=== PATIENT | male | born 1955 | race African-American/Black ===

== ENCOUNTER 2021-02-19 20:35 | Emergency (ER) | payer MEDICARE, SELFPAY ==
[2021-02-19 20:39] VITALS: BP 140/77; PULSE 58; RESP 16; TEMP 36.7; O2SAT 98; BMI 27.8
[2021-02-19 22:09] LABS: Bacteria 0 SEEN /hpf (None Seen); Mucous, Urine 0 SEEN /hpf (<or=2+); Squamous Epithelial Cells - UA 0 SEEN /hpf (0-5)
[2021-02-19 22:13] LABS: Absolute Lymphocyte Count 1.11 X10^3/uL (0.83-4.51); Absolute Neutrophil Count 2.2 X10^3/uL (2.0-7.7); Basophil# 0.02 X10^3/uL; Basophil% 0.5 % (0-1); Eosinophil# 0.17 X10^3/uL; Eosinophils% 4.2 % (0-5); Hematocrit 30.5 % (40-54); Lymphocyte # 1.11 X10^3/ul (0.83-4.51); Lymphocyte % 27.6 % (19-41); Mean Corp Hgb Conc 32.8 g/dL (32-36); Mean Corpuscular Hgb 30.4 pg (27.0-32.0); Mean Corpuscular Volume 92.7 fL (80-94); Mean Platelet Vol. 11.4 fl (6.2-12.0); Monocyte# 0.47 X10^3/uL; Monocyte% 11.7 % (0-10); NRBC Flagged by Analyzer 0 % (0-5); Neutrophil # 2.24 X10^3/uL (2.7-7.7); Neutrophil % 55.8 % (47-70); Platelet Count 170 K/mm3 (150-450); RBC Distribution Width CV 12.1 % (11.6-14.6); RBC Distribution Width SD 40.9 fl (35.1-43.9); Red Blood Count 3.29 M/mm3 (4.6-6.2)
[2021-02-19 22:16] LABS: Color, Urine Yellow (Yellow); Glucose, Dipstick 1000 mg/dl (Normal); Ketone-Dipstick Negative (Negative); Leukocyte Esterase-Dipstick 100 /ul (Negative); Nitrite-Dipstick Negative (Negative); Occult Blood-Urine 150 /ul (Negative); Protein-Dipstick 15 mg/dl (Negative); Specific Gravity, Urine 1.015 (1.002-1.030); Urine Bilirubin Dipstick Negative (Negative); Urine Clarity Clear (Clear); Urine Urobilinogen Normal (Normal)
[2021-02-19 22:27] LABS: International Normalized Ratio 2.2; Prothrombin Time (Protime)PT. 23.8 SECONDS (11.7-14.9)
[2021-02-19 22:29] LABS: AST(SGOT) 19 U/L (15-37); Alanine Aminotransfer ALT/SGPT 31 U/L (16-61); Albumin, Serum 3.2 g/dL (3.2-5.0); Alkaline Phosphatase 72 U/L (45-117); Anion Gap 5 (5-15); BUN 34 mg/dL (7-18); BUN/Creat Ratio 15.8 RATIO (10-20); Bilirubin, Direct 0.11 mg/dL (0.00-0.30); Calcium,Total 8.3 mg/dL (8.5-10.1); Chloride 106 mmol/L (98-107); Creatinine, Serum 2.15 mg/dL (0.70-1.30); EST Glomerular Filtration Rate 33 mL/min (>60); Est Glom Filt Rate - Afr Amer 40 mL/min (>60); Estimated Creatinine Clearance 32.26 ml/min; Globulin 3.2 g/dL (2.2-4.2); Glucose 289 mg/dL (74-106); Potassium 4.2 mmol/L (3.5-5.1); Protein, Total 6.4 g/dL (6.4-8.2); Sodium Level 139 mmol/L (136-145)
[2021-02-19 22:58] LABS: Red Blood Cells-Urine 0-5 SEEN /hpf (0-5); White Blood Cells 0-5 SEEN /hpf (0-5)
--- NOTE | 2021-02-20 00:54 | EDS_ITS ---
HPI History of Present Illness Chief Complaint: GI Bleed Informant: patient Onset/Context/Timing Onset: Weeks Narrative Narrative: Patient is a 65-year-old male with history of multiple DVTs and PEs, on chronic Coumadin therapy, presenting with 2 weeks of intermittent blood in the toilet bowl. He states he has been having hematuria is also been having blood in the front of his underwear. Today he sat down to have a bowel movement and noticed a large metal blood in the stool. He is not sure if it came from his stool or his urine. He denies any clots. He denies any associated pain. Does have a history of hemorrhoids. He denies any dizziness, nausea, vomiting or abdominal pain. Does have a urologist. [facility] Last colonoscopy was about 2 years ago. He states he did have a polyp removed at that time. Prior similar symptoms: No PFSH PFSH Medical History Diabetes Hip replacement planned Hypertension Myocardial infarct Pulmonary embolism Home Medications insulin aspart U-100 [Novolog Flexpen U-100 Insulin] See Protocol SUBCUT TID 02/19/21 [History Last Taken Unknown] insulin glargine [Lantus Solostar U-100 Insulin] 18 unit SUBCUT QHS 02/19/21 [History Last Taken Unknown] tamsulosin [Flomax] 0.4 mg PO DAILY 02/19/21 [History Last Taken Unknown] warfarin [Coumadin] 5 mg PO SUMOTUTHFRSA 02/19/21 [History Last Taken Unknown] warfarin [Coumadin] 7.5 mg PO WE 02/19/21 [History Last Taken Unknown] cephalexin 500 mg PO BID #10 cap 02/20/21 [Rx Last Taken Unknown] Allergy/AdvReac Type Severity Reaction Status Date / Time metformin Allergy Diarrhea Verified 02/19/21 20:38 oxymorphone [From Opana] Allergy NEEDS Verified 02/19/21 20:38 FOLLOW-UP Surgical History H/O shoulder replacement History of coronary artery stent placement Social History Smoking Status: Never smoker ROS ROS ED Constitutional Constitutional ED: Denies chills or fever(s) Eyes Eyes: Denies change in vision ENT ENT ED: Denies rhinorrhea or sore throat Cardiovascular Cardiovascular: Denies chest pain or palpitations Respiratory/Chest Respiratory/Chest: Denies cough or dyspnea Gastrointestinal Gastrointestinal: Reports other Details: Possible bright red blood per rectum ; Denies abdominal pain, nausea or vomiting Genitourinary Genitourinary ED: Reports hematuria; Denies dysuria or urinary frequency Musculoskeletal Musculoskeletal: Denies arthralgias or myalgias Integumentary Denies rash Neurologic Neurologic: Denies headache(s) or weakness EXAM Physical Exam Const Vital Signs: 02/19/21 20:39 Temperature 98.0 F Temperature Source Temporal Pulse Rate 58 L Respiratory Rate 16 Blood Pressure 140/77 H Blood Pressure Mean 98 Pulse Ox 98 Oxygen Delivery Method Room Air Positive well nourished and well developed General Appearance ED: well developed; Negative for pallor HEENT Reports moist mucous membranes Negative for tenderness Eyes PERRL and EOMs intact bilaterally General Eye ED: Negative for pale conjunctiva Neck no lymphadenopathy and supple Chest Wall inspection of chest normal Chest Narrative: Port right anterior chest wall Resp normal respiratory effort and clear to auscultation bilaterally Cardio regular rate, regular rhythm and no murmurs GI normal to inspection, nondistended, normoactive bowel sounds GI Narrative: No hemorrhoids appreciated. Normal rectal exam with brown stool. Rectal Exam: heme negative stool no CVA tenderness Penis: normal penis Meatus: meatus normal Scrotum: testes descended bilaterally Extremity normal to inspection General Extremety ED: Negative for edema or tenderness General Extremity: Negative for edema Neuro oriented x3 and no sensory deficits noted Sensorium / Orientation: alert Motor Exam: strength 5/5 throughout Psych mental status grossly normal Skin no rashes or lesions noted General Skin Exam: Negative for pallor MDM MDM MDM Narrative Medical decision making narrative: Patient evaluated for 2 weeks of worsening hematuria and possible bright red blood per rectum. On exam patient does not have any hemorrhoids or blood on rectal exam. Urinalysis is consistent with hematuria and possible pyuria. Patient is on Coumadin with an INR of 2.2. He has a hemoglobin of 10.0 but he states he does have a history of anemia. His other lab work is remarkable for creatinine of 2.15, but I do not know what his baseline is. Patient thinks he does have a history of CKD. He follows with the [facility]. Given that he is hemodynamically stable and appears to be having hematuria not bright red blood per rectum I think he is stable for outpatient follow-up. He will follow-up with his urologist. He is counseled on signs and symptoms of urinary retention which is a known complication of hematuria. Patient is also counseled that antibiotics can cause an increase in his INR he should follow this closely with his PCP. He verbalizes agreement understanding this plan. Discharged home in stable condition. Lab Data Labs: Laboratory Results - last 24 hr 02/19/21 02/19/21 02/19/21 21:45 22:00 22:00 WBC 4.0 L RBC 3.29 L Hgb 10.0 L Hct 30.5 L MCV 92.7 MCH 30.4 MCHC 32.8 RDW Std Deviation 40.9 RDW Coeff of [place] 12.1 Plt Count 170 MPV 11.4 Immature Gran % (Auto) 0.200 Neut % (Auto) 55.8 Lymph % (Auto) 27.6 [place] % (Auto) 11.7 H Eos % (Auto) 4.2 Baso % (Auto) 0.5 Absolute Neuts (auto) 2.2 Absolute Lymphs (auto) 1.11 Nucleated RBC % 0 PT 23.8 H INR 2.2 Sodium Potassium Chloride Carbon Dioxide Anion Gap BUN Creatinine Estim Creat Clear Calc Est GFR (MDRD) Af Amer Est GFR (MDRD) Non-Af BUN/Creatinine Ratio Glucose Calcium Total Bilirubin Direct Bilirubin AST ALT Alkaline Phosphatase Total Protein Albumin Globulin Urine Color Yellow Urine Clarity Clear Urine pH 6.0 Ur Specific [place] 1.015 Urine Protein 15 H Urine Glucose (UA) 1000 H Urine Ketones Negative Urine Occult Blood 150 H Urine Nitrite Negative Urine Bilirubin Negative Urine Urobilinogen Normal Ur Leukocyte Esterase 100 H Urine RBC 0-5 SEEN Urine WBC 0-5 SEEN Ur Squamous Epith Cells 0 SEEN Urine Bacteria 0 SEEN Urine Mucus 0 SEEN 02/19/21 22:00 WBC RBC Hgb Hct MCV MCH MCHC RDW Std Deviation RDW Coeff of [place] Plt Count MPV Immature Gran % (Auto) Neut % (Auto) Lymph % (Auto) [place] % (Auto) Eos % (Auto) Baso % (Auto) Absolute Neuts (auto) Absolute Lymphs (auto) Nucleated RBC % PT INR Sodium 139 Potassium 4.2 Chloride 106 Carbon Dioxide 28.0 Anion Gap 5 BUN 34 H Creatinine 2.15 H Estim Creat Clear Calc 32.26 Est GFR (MDRD) Af Amer 40 L Est GFR (MDRD) Non-Af 33 L BUN/Creatinine Ratio 15.8 Glucose 289 H Calcium 8.3 L Total Bilirubin 0.30 Direct Bilirubin 0.11 AST 19 ALT 31 Alkaline Phosphatase 72 Total Protein 6.4 Albumin 3.2 Globulin 3.2 Urine Color Urine Clarity Urine pH Ur Specific [place] Urine Protein Urine Glucose (UA) Urine Ketones Urine Occult Blood Urine Nitrite Urine Bilirubin Urine Urobilinogen Ur Leukocyte Esterase Urine RBC Urine WBC Ur Squamous Epith Cells Urine Bacteria Urine Mucus Discharge Plan Triage Chief Complaint: GI Bleed ED Provider: Renetta Junior Dx/Rx/DC Orders Clinical Impression: Hematuria, Acute UTI Instructions: ED Hematuria, ED Bladder Infection, Male (Adult) Prescriptions: New cephalexin 500 mg capsule 500 mg PO BID Qty: 10 RF: 0 No Action warfarin [Coumadin] 7.5 mg Tablet 7.5 mg PO WE RF: 0 tamsulosin [Flomax] 0.4 mg Capsule 0.4 mg PO DAILY RF: 0 warfarin [Coumadin] 5 mg Tablet 5 mg PO SUMOTUTHFRSA RF: 0 insulin aspart U-100 [Novolog Flexpen U-100 Insulin] 100 unit/mL (3 mL) Insulin Pen See Protocol unit SUBCUT TID RF: 0 Lantus Solostar U-100 Insulin 100 unit/mL (3 mL) Insulin Pen 18 unit SUBCUT QHS RF: 0 Referrals: [facility] [Other] Activity Restrictions/Additional Instructions: The blood seems to be coming from your bladder. Please follow-up with the urologist for this. You been placed on antibiotic in case it is associated with UTI. Your hemoglobin today is 10.0. Your INR is 2.2. Your creatinine is 2.15. Please follow-up with your primary care doctor for further trending of your hemoglobin and creatinine. Please follow closely with your primary care doctor for your INR as antibiotics can make your INR go up and increase your risk of bleeding. Disposition Disposition: Home, Self Care Discharge Date/Time: 02/20/21 01:21
== END 2021-02-20 01:21 | disposition home or self-care (01) ==
PROVIDERS: Emergency Provider Emergency Medicine
DX: N39.0 Urinary tract infection, site not specified (principal); R31.9 Hematuria, unspecified; I12.9 Hypertensive chronic kidney disease with stage 1 through stage 4 chronic kidney disease, or unspecified chronic kidney disease; E11.22 Type 2 diabetes mellitus with diabetic chronic kidney disease; N18.9 Chronic kidney disease, unspecified; Z79.01 Long term (current) use of anticoagulants; Z79.4 Long term (current) use of insulin; Z79.899 Other long term (current) drug therapy; I25.2 Old myocardial infarction; Z86.711 Personal history of pulmonary embolism; Z86.718 Personal history of other venous thrombosis and embolism; Z95.5 Presence of coronary angioplasty implant and graft
CPT/HCPCS: 36591; 80048; 80076; 81001; 82274; 85025; 85610; 87086; 99283; A4216